=== PATIENT | female | born 1990 | race Caucasian/White ===

== ENCOUNTER → 2023-02-09 23:47 | Outpatient (CLI) | payer OTHER, SELFPAY ==
[2023-02-09 18:36] LABS: Alanine Aminotransferase 36 U/L (12-78); Albumin Level 4.4 g/dl (3.5-5.0); Albumin/Globulin Ratio 1.5 (1.1-1.8); Alkaline Phosphatase 118 U/L (38-126); Anion Gap 14.4 mEq/L (5-15); Aspartate Amino Transferase 29 U/L (14-36); Basophils # 0.1 K/mm3 (0-0.2); Bilirubin,Total 0.4 mg/dl (0.2-1.3); Blood Urea Nitrogen 15 mg/dl (7-17); Calcium 9.6 mg/dl (8.4-10.2); Carbon Dioxide 28 mmol/L (22.0-30.0); Chloride 101 mmol/L (98-107); Chol/HDL Ratio 3.6 (1-3.5); Cholesterol 262 mg/dl (140-200); Eosinophils # 0.2 K/mm3 (0.0-0.4); Eosinophils % 2.4 % (0.1-12.0); Estimated Glomerular Filt Rate 142 ml/min (>60); GFR (African American) 172 ML/MIN (>60); Globulin 2.9 g/dL (1.3-3.2); Glucose 113 mg/dl (74-100); HDL Cholesterol 73 mg/dl (40-60); Hematocrit 48.1 % (37.0-47.0); Hemoglobin 15.2 g/dL (12.2-16.2); Lymphocytes # 2.6 K/mm3 (0.7-4.5); Lymphocytes % 33.5 % (10-50); Mean Corpuscular HGB Conc 31.7 g/dL (31.8-35.4); Mean Corpuscular Hemoglobin 28.9 pg (27.0-31.2); Mean Corpuscular Volume 91.3 fl (81-99); Mean Platelet Volume 8.5 fl (7.4-10.4); Monocytes # 0.4 K/mm3 (0.1-1.0); Monocytes % 5.1 % (1.7-9.3); Neutrophils # 4.4 K/mm3 (1.8-7.8); Neutrophils % 57.9 % (37.0-80.0); Platelet Count 398 K/mm3 (142-424); Potassium 4.4 mmoL/L (3.5-5.1); Red Blood Count 5.27 M/mm3 (4.20-5.40); Red Cell Distribution Width 13.3 % (11.5-17.5); Sodium 139 mmol/L (136-145); Total Protein,Serum 7.3 g/dl (6.3-8.2); Triglycerides 117 mg/dl (30-150); VLDL Cholesterol 23 mg/dL (0-40); White Blood Count 7.7 K/mm3 (4.8-10.8)
[2023-02-09 18:47] LABS: Direct LDL Cholesterol 154.95 mg/dL (100-129)
[2023-02-09 20:12] LABS: Hemoglobin A1C 5.8 % (4.0-6.0)
[2023-02-11 11:46] LABS: Estradiol 40.6 pg/mL (.); FSH 7.5 mIU/mL (.); LH 13.8 mIU/mL (.); Prolactin 11.1 ng/mL (4.8-23.3)
[2023-02-17 15:19] LABS: Testosterone,Free 1.9 pg/mL (0.0-4.2)
== END ==
LOC: LAB.DROPOF 23:47
PROVIDERS: PCP Family Medicine; Visit Provider Family Medicine
DX: E34.9 Endocrine disorder, unspecified (principal); F90.9 Attention-deficit hyperactivity disorder, unspecified type; E66.9 Obesity, unspecified; Z68.30 Body mass index [BMI] 30.0-30.9, adult; Z83.3 Family history of diabetes mellitus
CPT/HCPCS: 80053; 80061; 82626; 82670; 83001; 83002; 83036; 83498; 84146; 84402; 84443; 85025